=== PATIENT | female | born 1955 | race Caucasian/White ===

== ENCOUNTER 2023-08-23 06:50 | Day surgery (SDC) | payer MEDICARE, OTHER ==
[2023-08-16 09:28] VITALS: BP 155/88
[~2023-08-23] VITALS: Ht 172.7 cm; Wt 61.6 kg
[~2023-08-23 06:50] MED LIST: ADVIL200 MG PO; ALAWAY10 ML OPTH; ANTIHISTAMINE25 M1 PO; HYDROCORTISONE28 G3 TP; OMEGA-3 FISH1000 MG PO; OPCON-A EYE DRO15 ML OP; PROAIR HFA8.5 GM IH; REFRESH TEARS15 ML OP; TYLENOL325 MG PO; VITAMIN D5000 UNIT PO; ZYRTEC10 MG PO
[2023-08-23 06:59] VITALS: BP 165/74
--- NOTE | 2023-08-23 07:49 | NUR ---
DS ROUNDS. 30 MINUTES. PT ADMITTED ANXIETY RELATED TO PROCEDURE AND OUTCOMES. DEMONSTRATED STRONG COPING RESOURCES. FACILITATED STORY-TELLING; PROVIDED ANXIETY CONTAINMENT; PROVIDED HOSPITALITY; PROVIDED PRAYER. PT EXPRESSED HUMOR; PT EXPRESSED ANXIETY REDUCTION. NO FOLLOW UP REQUIRED AT THIS TIME.
--- NOTE | 2023-08-23 08:48 | NUR ---
08/23/23 0848 Sheets,[place] 0825 PT ARRIVED ASLEEP AND RESP EVEN AND UNLABORED. VSS. 0831 PT WAKES AND O2 NC REMOVED. PT ROLLED TO BACK AND HOB INCREASED. 0840 HOB INCREASED AND AND PT SIPPING WATER WITH NO CONCERNS.
[2023-08-23 08:49] VITALS: BP 136/81
--- NOTE | 2023-08-23 10:46 | OR ---
[facility] [address], [place] [address] Signed DATE OF OPERATION: 08/23/2023 SURGEON: Dee Dee Murphy MD PREOPERATIVE DIAGNOSES: 1. Maternal grandmother with colon cancer in her 70s. 2. Personal history of a villous adenomatous polyp at 6 cm in the posterior midline of the rectum in 2012 at age 57. 3. Diverticulosis. 4. Minimal internal hemorrhoids. 5. Tattoo at 6 cm in posterior midline of rectum. POSTOPERATIVE DIAGNOSES: 1. Minimal sigmoid diverticulosis. 2. Moderate internal hemorrhoids. 3. Tattoo at 6 cm in posterior midline of rectum. PROCEDURE: Colonoscopy without biopsy. ESTIMATED BLOOD LOSS: None. 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 She was asked to see me in followup for colonoscopy. We know her maternal grandmother had colon cancer in her 70s. I helped Alley back in 2012 at the age of 57 with her initial colonoscopy. She had a fairly significant villous adenomatous polyp removed from 6 cm in the posterior midline of the rectum. We left a tattoo in this area. We know that she has some diverticulosis along with minimal internal hemorrhoids. She is given some stool samples and apparently that has been negative. She has no lower GI complaints. She came back to us in 2016 and had again the minimal diverticulosis and moderate internal hemorrhoids. She is returning now for the followup colonoscopy. In the office, I gave her a pamphlet on colonoscopy. We reviewed the nature of the test along with the risks including, but not limited to gas bloating, crampy abdominal pain, bleeding, perforation requiring surgery, and missed diagnosis. We also reviewed the written instructions for the bowel prep line by line. In addition, we had to use 14 mg of Versed and 250 mcg of fentanyl to get her through her 1st colonoscopy. It completely wiped her out for four days and she had to miss work. She said it was terrible. On her 2nd colonoscopy, we used propofol and she said Electronically Signed By: DEE DEE MURPHY MD 08/23/23 1046 PATIENT NAME: ALLEY BATEMAN OPERATIVE REPORT DATE OF : 51 REPORT #: [id number] PHYSICIAN: DEE DEE MURPHY MD PCP: ZORAIDA COOPER REPORT IS CONFIDENTIAL AND NOT TO BE RELEASED WITHOUT AUTHORIZATION [facility] [address] [place] [id number] Signed that was wonderful. Consequently, we used monitored anesthesia care with propofol infusion for Alley. She had expressed understanding and wished to proceed. She knows her significant other has to take her home afterwards. She had expressed understanding and wishes to proceed. DESCRIPTION OF PROCEDURE: Alley was taken into our endoscopy suite and placed in the left lateral decubitus position. She was given monitored anesthesia care with propofol infusion per our nurse mixed crop farmer. A digital rectal exam was performed. There were no external hemorrhoids. She had good sphincter tone. There were no masses. The adult colonoscope was introduced and advanced under direct visualization of the camera without difficulty up into the cecum. It took some extra propofol and some abdominal compression to get through her colon. She is tall and her colon is a little bit long. Her prep was excellent as always. We could easily see the appendiceal orifice and the ileocecal valve. The scope was then slowly withdrawn. We took multiple pictures throughout for photodocumentation. She indeed has sigmoid diverticula. They are small to moderate in size, few in number and scattered about. We could see the tattoo easily at 6 cm in the posterior midline of the rectum. There was no evidence of any recurrent polyp. We retroflexed the scope and she indeed has moderate internal hemorrhoid columns. After this, the gas was suctioned out and the colonoscope removed. Alley tolerated the procedure quite well. RECOMMENDATIONS: Alley can follow up in 5 years for repeat colonoscopy. Dee Dee Murphy MD [facility] /[id number] cc: PARAM Valencia MD Copies: ZORAIDA COOPER Electronically Signed By: DEE DEE MURPHY MD 08/23/23 1046 PATIENT NAME: ALLEY BATEMAN OPERATIVE REPORT DATE OF : 51 REPORT #: [id number] PHYSICIAN: DEE DEE MURPHY MD PCP: ZORAIDA COOPER REPORT IS CONFIDENTIAL AND NOT TO BE RELEASED WITHOUT AUTHORIZATION [address] [address] Signed DEE DEE MURPHY MD ~ Electronically Signed By: DEE DEE MURPHY MD 08/23/23 1046 PATIENT NAME: FRANSICOALLEY LEE OPERATIVE REPORT DATE OF : 51 REPORT #: [id number] PHYSICIAN: DEE DEE MURPHY MD PCP: ZORAIDA COOPER REPORT IS CONFIDENTIAL AND NOT TO BE RELEASED WITHOUT AUTHORIZATION
== END 2023-08-23 09:06 | disposition home or self-care (01) ==
LOC: DS 06:50
PROVIDERS: ATTEND Colon & Rectal Surgery
PROC: 0DJD8ZZ Inspection of Lower Intestinal Tract, Via Natural or Artificial Opening Endoscopic (ICD-10-PCS; principal; 2023-08-23 08:15)
DX: K57.30 Diverticulosis of large intestine without perforation or abscess without bleeding (principal); K64.8 Other hemorrhoids; Z86.010 Personal history of colon polyps; Z80.0 Family history of malignant neoplasm of digestive organs; F32.A Depression, unspecified
CPT/HCPCS: 00811; J2001; J2704; J7121